=== PATIENT | female | born 1995 | race Caucasian/White ===

== ENCOUNTER 2021-10-22 14:22 | Emergency (ER) | payer OTHER, SELFPAY ==
--- NOTE | 2021-10-22 | ECG_ITS ---
Test Reason : abd pain Blood Pressure : / mmHG Vent. Rate : 102 BPM Atrial Rate : 102 BPM P-R Int : 142 ms QRS Dur : 072 ms QT Int : 340 ms P-R-T Axes : 022 003 047 degrees QTc Int : 443 ms Sinus tachycardia Otherwise normal ECG No previous ECGs available Referred By: Generic ED Physician Electronically Signed By:JASIEL RENEE MD
--- NOTE | ~2021-10-22 | US_ITS ---
EXAMINATION: US PELVIS COMPLETE US PELVIS ENDOVAGINAL WITH DOPPLER CLINICAL INFORMATION: Left lower quadrant pain. Rule out ovarian cyst or torsion. COMPARISON: None. TECHNIQUE: Transabdominal and transvaginal images of the pelvis were obtained. Color and spectral Doppler evaluation of the ovaries was performed. FINDINGS: UTERUS: Anteverted. Normal size and contour, measuring 7.3 x 3.0 x 4.5 cm (cervix to fundus x AP x transverse). Uniform, homogeneous endometrium measures 0.9 cm in width. Cervix is normal as visualized. RIGHT OVARY: Normal size and echogenicity measuring 3.0 x 2.0 x 2.5 cm. No adnexal mass. Normal color and spectral Doppler appearance. Normal arterial and venous spectral Doppler waveforms identified. LEFT OVARY: Normal size and echogenicity measuring 3.3 x 2.5 x 2.9 cm. No adnexal mass. There is a 1.7 cm benign physiologic follicular cyst. Normal color and spectral Doppler appearance. Normal arterial and venous spectral Doppler waveforms identified. FREE FLUID: No pelvic free fluid. US/US pelvic ovarian doppler IMPRESSION: There is a 1.7 cm benign physiologic follicular cyst in the left ovary. No adnexal mass bilaterally. Normal color and spectral Doppler evaluation bilaterally.
--- NOTE | ~2021-10-22 | US_ITS ---
EXAMINATION: US PELVIS COMPLETE US PELVIS ENDOVAGINAL WITH DOPPLER CLINICAL INFORMATION: Left lower quadrant pain. Rule out ovarian cyst or torsion. COMPARISON: None. TECHNIQUE: Transabdominal and transvaginal images of the pelvis were obtained. Color and spectral Doppler evaluation of the ovaries was performed. FINDINGS: UTERUS: Anteverted. Normal size and contour, measuring 7.3 x 3.0 x 4.5 cm (cervix to fundus x AP x transverse). Uniform, homogeneous endometrium measures 0.9 cm in width. Cervix is normal as visualized. RIGHT OVARY: Normal size and echogenicity measuring 3.0 x 2.0 x 2.5 cm. No adnexal mass. Normal color and spectral Doppler appearance. Normal arterial and venous spectral Doppler waveforms identified. LEFT OVARY: Normal size and echogenicity measuring 3.3 x 2.5 x 2.9 cm. No adnexal mass. There is a 1.7 cm benign physiologic follicular cyst. Normal color and spectral Doppler appearance. Normal arterial and venous spectral Doppler waveforms identified. FREE FLUID: No pelvic free fluid. US/US transvaginal IMPRESSION: There is a 1.7 cm benign physiologic follicular cyst in the left ovary. No adnexal mass bilaterally. Normal color and spectral Doppler evaluation bilaterally.
--- NOTE | ~2021-10-22 | US_ITS ---
EXAMINATION: US PELVIS COMPLETE US PELVIS ENDOVAGINAL WITH DOPPLER CLINICAL INFORMATION: Left lower quadrant pain. Rule out ovarian cyst or torsion. COMPARISON: None. TECHNIQUE: Transabdominal and transvaginal images of the pelvis were obtained. Color and spectral Doppler evaluation of the ovaries was performed. FINDINGS: UTERUS: Anteverted. Normal size and contour, measuring 7.3 x 3.0 x 4.5 cm (cervix to fundus x AP x transverse). Uniform, homogeneous endometrium measures 0.9 cm in width. Cervix is normal as visualized. RIGHT OVARY: Normal size and echogenicity measuring 3.0 x 2.0 x 2.5 cm. No adnexal mass. Normal color and spectral Doppler appearance. Normal arterial and venous spectral Doppler waveforms identified. LEFT OVARY: Normal size and echogenicity measuring 3.3 x 2.5 x 2.9 cm. No adnexal mass. There is a 1.7 cm benign physiologic follicular cyst. Normal color and spectral Doppler appearance. Normal arterial and venous spectral Doppler waveforms identified. FREE FLUID: No pelvic free fluid. US/US pelvic complete IMPRESSION: There is a 1.7 cm benign physiologic follicular cyst in the left ovary. No adnexal mass bilaterally. Normal color and spectral Doppler evaluation bilaterally.
[2021-10-22 16:00] VITALS: BP 182/108; PULSE 118; RESP 18; TEMP 36.6; O2SAT 99; BMI 41.1
[2021-10-22 16:34] LABS: MANUAL DIFF FLAG NO
[2021-10-22 16:38] LABS: Appearance Urine CLEAR; Color Urine YELLOW; Glucose Urine UA NEG (NEG); Leukocyte Esterase Urine NEG (NEG); Nitrite Urine NEG (NEG); PH 7.5 (5.0-8.0); Specific Gravity - Urine 1.015 (1.005-1.025); Urine Blood NEG (NEG); Urine Ketones NEG (NEG); Urine Protein NEG (NEG-TRACE)
[2021-10-22 16:39] LABS: Basophils Absolute Auto 0.1 X10*3/uL (0.0-0.2); Basophils Percent Auto 0.9 % (0-2); Eosinophils Absolute Auto 0.1 X10*3/uL (0.0-0.4); Eosinophils Percent Auto 0.9 % (0-4); Hemoglobin 13.8 g/dl (12.0-16.0); Imm Gran Abs Auto 0.11 X10*3/uL (0.00-0.03); Imm Gran Pct Auto 0.9 % (0.0-0.4); Lymphocytes Percent Auto 25.9 % (20-40); Mean Corpuscular HGB Conc 32.9 g/dl (31.0-35.0); Mean Corpuscular Hemoglobin 28.9 pg (27.0-33.0); Mean Corpuscular Volume 87.9 fL (80.0-98.0); Mean Platelet Volume 9.8 fL (9.4-12.3); Monocytes Absolute Auto 0.8 X10*3/uL (0.1-1.2); Monocytes Percent Auto 6.8 % (2-11); Neutrophils Absolute Auto 7.6 x10*3/uL (2.0-8.3); Neutrophils Percent Auto 64.6 % (45-73); Platelet Count 413 X10*3/uL (160-400); Red Blood Count 4.78 X10*6/uL (4.20-5.50); Red Cell Distribution Width 12.7 % (11.0-16.0); White Blood Count 11.7 X10*3/uL (4.8-10.8)
[2021-10-22 16:40] LABS: UPreg QC Valid YES; Urine Pregnancy NEGATIVE (NEGATIVE)
[2021-10-22 16:51] LABS: Alanine Aminotransferase 36 U/L (0-31); Albumin Level 4.5 g/dL (3.5-5.0); Alkaline Phosphatase 102 U/L (39-117); Anion Gap 15 (12-20); Aspartate Amino Transferase 17 U/L (5-31); Bilirubin Total 0.2 mg/dL (0.0-1.0); Blood Urea Nitrogen 6 mg/dL (9-16); Calcium 9.8 mg/dL (8.4-10.2); Carbon Dioxide 22 mmol/L (22-29); Chloride 107 mmol/L (96-108); Estimated Glomerular Filt Rate > 60; Glucose Fasting 145 mg/dL (60-99); Lipase 32 U/L (8-78); Potassium 4.1 mmol/L (3.3-5.1); Sodium 140 mmol/L (135-145); Total Protein 7.6 g/dL (6.5-8.0)
--- NOTE | 2021-10-22 17:48 | ED_ITS ---
HPI - Abdominal Pain General Chief Complaint: Abdominal Pain Stated Complaint: abd pain Time Seen by Provider: 10/22/21 17:20 Source: patient Mode of arrival: ambulatory Limitations: no limitations History of Present Illness HPI narrative: 18-year-old female who presents emergency department for evaluation of left lower quadrant pain, diarrhea and constipation. The patient states that on 10/10/2021 she developed nausea. She states she was trying to get and she was concerned that she was . She states that on 10/13/2021 she then developed vaginal spotting. On 05/2021 she then developed severe abdominal pain. She points to her left lower quadrant when asked to localize the pain. She states that the pain was a constant, cramping sensation. She states that she then blood for 4 days which is usual for her menstrual periods however this menstrual period was several days too soon. She states that since that time she has had constant, lower abdominal cramping left greater than right, the pain is moderate to severe in intensity. She states that occasionally the pain is so severe that it causes her to have watery diarrhea. She states she has also had intermittent constipation. She had subjective fever and fatigue at home. She denied frequency, urgency or dysuria. She took several home tests the majority of which were negative and 1 was indeterminate. The patient states that she took a road trip during the holiday and the symptoms started while she was traveling. She states that she has celiac disease and is a vegetarian. She states that her symptoms feel different than her celiac disease. Related Data Previous Rx's Medication Instructions Recorded doxycycline hyclate 100 mg tablet 100 mg PO Q12H 14 Days #28 tab 10/22/21 metronidazole 500 mg tablet 500 mg PO BID 14 Days #28 tab 10/22/21 Allergies Allergy/AdvReac Type Severity Reaction Status Date / Time gluten Allergy Diarrhea Verified 10/22/21 15:59 Review of Systems Review of Systems Yes all other systems are reviewed and are negative Physical Exam Vital Signs: Vital Signs: Last Vital Signs Temp 98.4 F 10/22/21 19:58 Pulse 101 H 10/22/21 19:58 Resp 18 10/22/21 19:58 BP 156/96 H 10/22/21 19:58 Pulse Ox 99 10/22/21 19:58 BMI result Body Mass Index 41.1 Const: Other: Very pleasant cooperative female patient, she does not appear to be in distress, she answers all questions appropriately. HENMT: Head: Yes normal to inspection, Yes normocephalic and Yes atraumatic Ears: external ears normal General nose exam: Normal external nose present Face and sinus: Yes normal facial exam Mouth: Normal oral and palatal mucosa present Throat: Yes posterior oropharynx normal Eyes: General: appearance normal, both eyes and all related structures Pupils: Equal, round and reactive pupils present Neck: Neck: Yes normal visual inspection, Yes no lymphadenopathy, Yes trachea midline and Yes supple Chest: Chest palpation & inspection: normal inspection of the chest and normal palpation of entire chest wall Resp: Effort & Inspection: normal respiratory effort and able to speak in complete sentences Auscultation: clear to auscultation bilaterally Cardio: Rate: regular rate Rhythm: regular rhythm Heart sounds: S1 normal heart sound present, S2 normal heart sound present and no murmurs GI: Inspection: Yes normal to inspection Palpation (GI): Soft to palpation, Tenderness to palpation present (GI) in the epigastrum ( moderate), in the LLQ ( Moderate) and suprapubicly ( moderate); Negative for not in the RLQ and no guarding Auscultation: normal bowel sounds : General: Yes no CVA tenderness Back/Spine/Pelvis: Back: no CVA tenderness Skin: General skin exam: no rashes or lesions noted Neuro: Cranial nerves: Yes CN's II-XII intact bilaterally and Yes Equal, round and reactive pupils present Cognition (Neuro): normal cognition Motor exam (neuro): 5/5 motor strength present throughout Extrem: General: Yes normal to inspection Psych: Appearance: grossly normal Speech and movement: Normal speech and movement present Affect: normal affect Attitude: cooperative Thought process: Normal thought process present Thought content: Normal thought content present Course Course Course Narrative: 26-year-old female who presents emergency department for evaluation of lower abdominal pain since 10/14/2021 (8 days). The pain started at the beginning of her menstrual period, she blood for 4 days but the pain continued. The pain is a constant, cramping pain greater in the left lower quadrant area. She has had intermittent diarrhea and intermittent constipation. She had a subjective fever at home as well as associated nausea but no vomiting. Initial vital signs revealed an elevated blood pressure of 182/108, elevated pulse of 118 otherwise unremarkable. Examination did reveal left lower quadrant and suprapubic tenderness. Laboratory evaluation revealed a normal CBC and CMP. Urine test was negative. Urinalysis was negative. Lipase was normal. At this time a concerned the patient may have an ovarian cyst versus ovarian torsion , therefore I ordered ultrasound of the patient's pelvis. She does not have a vaginal discharge, PID is a possibility as well. 2123 : The patient's Doppler ultrasound revealed a physiologic cyst but no acute process to explain her pain. Pelvic examination is consistent with pelvic inflammatory disease and I did discuss this with her. Patient was given ceftriaxone 500 mg IM with lidocaine. She is given a prescription for doxycycline 100 mg twice a day for 14 days and metronidazole 500 mg twice a day for 10 days. She was advised to take Tylenol and ibuprofen for pain. She will need to follow-up with her guest services attendant for re-evaluation. MDM - Abdominal Pain Lab Data Result diagrams: 10/22/21 16:30 10/22/21 16:30 Labs: Lab Results 10/22/21 10/22/21 10/22/21 Range/Units 16:30 16:30 16:30 WBC 11.7 H (4.8-10.8) X10*3/uL RBC 4.78 (4.20-5.50) X10*6/uL Hgb 13.8 (12.0-16.0) g/dl Hct 42.0 (37.0-47.0) % MCV 87.9 (80.0-98.0) fL MCH 28.9 (27.0-33.0) pg MCHC 32.9 (31.0-35.0) g/dl RDW 12.7 (11.0-16.0) % Plt Count 413 H (160-400) X10*3/uL MPV 9.8 (9.4-12.3) fL Immature Gran % (Auto) 0.9 H (0.0-0.4) % Neut % (Auto) 64.6 (45-73) % Lymph % (Auto) 25.9 (20-40) % [place] % (Auto) 6.8 (2-11) % Eos % (Auto) 0.9 (0-4) % Baso % (Auto) 0.9 (0-2) % Lymph # (Auto) 3.0 (1.2-4.9) X10*3/uL [place] # (Auto) 0.8 (0.1-1.2) X10*3/uL Eos # (Auto) 0.1 (0.0-0.4) X10*3/uL Baso # (Auto) 0.1 (0.0-0.2) X10*3/uL Abs Immat Gran (auto) 0.11 H (0.00-0.03) X10*3/uL Absolute Neuts (auto) 7.6 (2.0-8.3) x10*3/uL Absolute Nucleated RBC 0.000 (0.0-0.012) X10*3/uL Nucleated RBC % (auto) 0.0 (0.0-0.2) /100WBC Sodium 140 (135-145) mmol/L Potassium 4.1 (3.3-5.1) mmol/L Chloride 107 (96-108) mmol/L Carbon Dioxide 22 (22-29) mmol/L Anion Gap 15 (12-20) BUN 6 L (9-16) mg/dL Creatinine 0.72 (0.5-1.4) mg/dL Estim Creat Clear Calc 135.0 Estimated GFR > 60 Fasting Glucose 145 H (60-99) mg/dL Calcium 9.8 (8.4-10.2) mg/dL Total Bilirubin 0.2 (0.0-1.0) mg/dL AST 17 (5-31) U/L ALT 36 H (0-31) U/L Alkaline Phosphatase 102 (39-117) U/L Total Protein 7.6 (6.5-8.0) g/dL Albumin 4.5 (3.5-5.0) g/dL Lipase 32 (8-78) U/L Urine Color YELLOW Urine Appearance CLEAR Urine pH 7.5 (5.0-8.0) Ur Specific [place] 1.015 (1.005-1.025) Urine Protein NEG (NEG-TRACE) MG/DL Urine Glucose (UA) NEG (NEG) MG/DL Urine Ketones NEG (NEG) MG/DL Urine Blood NEG (NEG) Urine Nitrite NEG (NEG) Ur Leukocyte Esterase NEG (NEG) Urine Test (NEGATIVE) 10/22/21 Range/Units 16:30 WBC (4.8-10.8) X10*3/uL RBC (4.20-5.50) X10*6/uL Hgb (12.0-16.0) g/dl Hct (37.0-47.0) % MCV (80.0-98.0) fL MCH (27.0-33.0) pg MCHC (31.0-35.0) g/dl RDW (11.0-16.0) % Plt Count (160-400) X10*3/uL MPV (9.4-12.3) fL Immature Gran % (Auto) (0.0-0.4) % Neut % (Auto) (45-73) % Lymph % (Auto) (20-40) % [place] % (Auto) (2-11) % Eos % (Auto) (0-4) % Baso % (Auto) (0-2) % Lymph # (Auto) (1.2-4.9) X10*3/uL [place] # (Auto) (0.1-1.2) X10*3/uL Eos # (Auto) (0.0-0.4) X10*3/uL Baso # (Auto) (0.0-0.2) X10*3/uL Abs Immat Gran (auto) (0.00-0.03) X10*3/uL Absolute Neuts (auto) (2.0-8.3) x10*3/uL Absolute Nucleated RBC (0.0-0.012) X10*3/uL Nucleated RBC % (auto) (0.0-0.2) /100WBC Sodium (135-145) mmol/L Potassium (3.3-5.1) mmol/L Chloride (96-108) mmol/L Carbon Dioxide (22-29) mmol/L Anion Gap (12-20) BUN (9-16) mg/dL Creatinine (0.5-1.4) mg/dL Estim Creat Clear Calc Estimated GFR Fasting Glucose (60-99) mg/dL Calcium (8.4-10.2) mg/dL Total Bilirubin (0.0-1.0) mg/dL AST (5-31) U/L ALT (0-31) U/L Alkaline Phosphatase (39-117) U/L Total Protein (6.5-8.0) g/dL Albumin (3.5-5.0) g/dL Lipase (8-78) U/L Urine Color Urine Appearance Urine pH (5.0-8.0) Ur Specific [place] (1.005-1.025) Urine Protein (NEG-TRACE) MG/DL Urine Glucose (UA) (NEG) MG/DL Urine Ketones (NEG) MG/DL Urine Blood (NEG) Urine Nitrite (NEG) Ur Leukocyte Esterase (NEG) Urine Test NEGATIVE (NEGATIVE) ECG Data Attestation: I personally reviewed and interpreted this ECG as follows: Interpretation: 1631: Sinus tachycardia with a rate of 102, normal CA interval, QRS duration QTC interval, Q-wave in lead 3, inverted T-wave in V1 and V2, no ST segment elevation, no ST segment depression, no PACs, no PVCs. Except for the tachycardia this is a normal EKG. Discharge Plan Discharge Clinical Impression: Acute pelvic inflammatory disease Patient Disposition: Home, Self-Care Additional Instructions: Your blood work was unremarkable. The ultrasound of your pelvis revealed a normal 1.7 cm benign physiologic follicular cyst in the left ovary with good blood flow to the ovary. This is not the cause of your pain. Your pelvic examination is consistent with pelvic inflammatory disease. Approximately 30% of the time, pelvic inflammatory disease is caused by sexually transmitted diseases such as Trichomonas, gonorrhea or chlamydia. Approximately 70% of the time, pelvic inflammatory disease is caused by abnormal bacteria (anaerobic bacteria) in your vagina that can cause an infection You received ceftriaxone 500 mg intramuscularly here in the emergency department Take doxycycline 100 mg, 1 pill twice a day for 14 days. Take metronidazole 500 mg, 1 pill twice a day for 14 days. These 3 antibiotics treat sexually transmitted diseases such as gonorrhea, chlamydia and Trichomonas as well as anaerobic bacteria that can cause pelvic inflammatory disease. Take ibuprofen 200 mg pills, 3 pills every 6 hours as needed for pain. Take Tylenol (acetaminophen) 500 mg pills, 2 pills every 4 to 6 hours as needed for pain. Follow-up with your gynecology in 7-10 days. If your guest services attendant cannot see you, you [facility] also [facility] The doctor that follows up will need to review the following results with you: Bacterial vaginosis testing Gonorrhea and chlamydia (cervical swab ) Trichomonas testing If the gonorrhea or chlamydia tests are positive, then your doctor should test you for syphilis and for HIV as well. Also, if any of these tests are positive then your sexual partner will need to be treated otherwise if you have sex with this person again you will get an infection again. Please return to the emergency department if your symptoms get worse or if you develop any symptoms that are concerning to you. Prescriptions: New metronidazole 500 mg tablet 500 mg PO BID 14 Days Qty: 28 RF: 0 doxycycline hyclate 100 mg tablet 100 mg PO Q12H 14 Days Qty: 28 RF: 0 PMFSH Past Medical History PMFSH Narrative: Past medical history: Celiac disease. Past surgical history: Cholecystectomy. Social history: Patient is , she states she is trying to get . She is a vegetarian. She denies tobacco use. She occas ionally drinks alcohol. She denies drug use. Social History Social History Advance Directives: No Advance Directives Information Provided: No
[2021-10-22 19:58] VITALS: BP 156/96; PULSE 101; RESP 18; TEMP 36.9; O2SAT 99
--- NOTE | 2021-10-22 20:15 | PC.NURSE ---
Assisted with a pelvic exam,pt tolerted procedure well.pt is now resting comfortable at this time. rn aware
[2021-10-22] MEDS: cefTRIAXone sodium 500 MG, Lidocaine HCl 1 % MPF 1 ML IM (20:50)
--- NOTE | 2021-10-22 20:55 | PC.NURSE ---
Pt medicated per MAR, provided with DC paperwork. VSS.
[2021-10-23 03:51] LABS: CT PCR NOT DETECTED (Not Detect.); NG PCR NOT DETECTED (Not Detect.)
[2021-10-23 09:03] LABS: BV Int Neg Control Negative (Negative); BV Int Pos Control Positive (Positive)
== END 2021-10-22 21:16 | disposition home or self-care (01) ==
PROVIDERS: Emergency Provider Emergency Medicine Emergency Medical Services
DX: N73.0 Acute parametritis and pelvic cellulitis (principal); K90.0 Celiac disease; Z90.49 Acquired absence of other specified parts of digestive tract
CPT/HCPCS: 36415; 76830; 76856; 80053; 81003; 81025; 83690; 85025; 87480; 87491; 87510; 87591; 87660; 93005; 93975; 96372; 99284; J0696